=== PATIENT | female | born 1965 | race Caucasian/White ===

== ENCOUNTER 2021-10-16 10:24 | Day surgery (SDC) | payer MEDICAID ==
[2021-10-15 09:52] VITALS: BMI 26.8
[~2021-10-16 10:24] MED LIST: SODIUM CHLORIDE 0.9% 1,000 ML IV SCH
[2021-10-16] MEDS ORDERED: ePHEDrine 50 MG/ML 1 ML VIAL ONE (13:51)
[2021-10-16] MEDS ORDERED: fentaNYL (PF) 50 MCG/ML 2 ML AMP ONE (13:51)
[2021-10-16] MEDS ORDERED: LIDOCAINE 2% INJ 20 MG/ML (2 ML VIAL) ONE (13:51)
[2021-10-16] MEDS ORDERED: SUCCINYLCHOLINE CHLORIDE 200 MG/10 ML VIAL IV ONE (13:51)
[2021-10-16] MEDS ORDERED: PROPOFOL 10 MG/ML 20 ML VIAL IV ONE (13:51)
[2021-10-16] MEDS ORDERED: PHENYLEPHRINE-0.9% NACL SYG 1,000 MCG/10 ML SYRINGE ONE (13:51)
[2021-10-16] MEDS ORDERED: MIDAZOLAM 2 MG/2 ML VIAL ONE (13:51)
--- NOTE | 2021-10-16 14:11 | P.HPCAR ---
History of Present Illness This is Dr. Aguilar dictating an H/P on this patient The patient was interviewed and examined IMPRESSION / ASSESSMENT: Persistent atrial fibrillation, symptomatic Type 2 diabetes Normal TSH PLAN: Proceed with pulmonary vein isolation Continue anticoagulation HPI Patient complains of palpitations She has documented atrial fibrillation Denies any orthopnea PND Denies any cough expectoration No chest discomfort ROS: No fever chills or rigors, no cough, phlegm or expectoration, no nausea, vomiting or diarrhea, no hematuria, dysuria, no musculoskeletal complaints, no strokes or seizures, no skin lesions. EXAMINATION: Afebrile 98.2F pulse rate in the 50s, blood pressure 138/78 mmHg No orthopnea Normal heart sounds no murmurs no gallops Lungs no rhonchi no crackles No lower extremity edema REVIEW OF LABS, ECG & MEDICAL DATA 2-D echo and Doppler study from [facility] shows normal LV size with normal LV systolic function without any significant valvular abnormalities Medications at home include metoprolol and ELIQUIS Physical Exam Vitals: Vital Signs Temp Pulse Resp BP Pulse Ox 10/16/21 11:07 98.2 F 50 L 18 138/78 98 Intake and Output 10/15/21 10/16/21 10/16/21 22:59 06:59 14:59 Intake Total 20 Balance 20 Intake: IV 20 Other: Weight 75.8 kg Past Medical History Past Medical History: GERD/Reflux, Osteoarthritis (OA) Additional Past Medical History / Comment(s): See Dr Aguilar's H&P,borderline diabetes,hx stomach ulcer History of Any Multi-Drug Resistant Organisms: None Reported Past Surgical History: Hysterectomy, Joint Replacement, Orthopedic Surgery Additional Past Surgical History / Comment(s): lt foot surgery ,lt knee replacement Past Anesthesia/Blood Transfusion Reactions: No Reported Reaction Smoking Status: Never smoker - Past Family History Mother Family Medical History: No Reported History Physical Examination Vital Signs Temp Pulse Resp BP Pulse Ox 10/16/21 11:07 98.2 F 50 L 18 138/78 98 Intake and Output 10/15/21 10/16/21 10/16/21 22:59 06:59 14:59 Intake Total 20 Balance 20 Intake: IV 20 Other: Weight 75.8 kg Results Current Medications Generic Name Dose Route Start Last Admin Trade Name Freq PRN Reason Stop Dose Admin Sodium Chloride 1,000 mls @ 20 mls/hr 10/16/21 05:57 10/16/21 11:09 Saline 0.9% IV 11/15/21 05:58 20 mls .Q24H ELSA Administration Intake and Output 10/15/21 10/16/21 10/16/21 22:59 06:59 14:59 Intake Total 20 Balance 20 Intake: IV 20 Other: Weight 75.8 kg Patient Weight 10/17/21 06:59 Weight 75.8 kg
[2021-10-16] MEDS ORDERED: LIDOCAINE 1% INJ 10MG/ML (30 ML VIAL-PF) SQ ONE (14:28)
[2021-10-16] MEDS ORDERED: HEPARIN SOD,PORK IN 0.45% NACL 25,000 UNIT in 0.45% NACL 1 250ML.BAG IV ONE (14:36)
--- NOTE | 2021-10-16 16:06 | P.PRLE ---
RE: Reena Delgadillo Dear Dr.Alaouie Reena Delgadillo underwent successful pulmonary vein isolation for management of recurrent atrial fibrillation. She will continue ELIQUIS for a minimum of 3 months more. Her dose of metoprolol may be reduced after about 6 weeks or so She'll follow-up with you as previously scheduled Thank you for entrusting me with the care of the patient Warm regards Sincerely Von Aguilar
[2021-10-16] MEDS ORDERED: ACETAMINOPHEN TAB 325 MG TAB PO PRN (16:07)
--- NOTE | 2021-10-16 16:13 | P.EPPROC ---
- EP Procedure Note Electrophysiology Procedure Note: PROCEDURE A. fib ablation/PVI DIAGNOSIS Paroxysmal Atrial fibrillation, symptomatic, refractory to therapy RESULT No left atrial appendage mass seen on intracardiac echo Successful A. fib ablation/pulmonary vein isolation of all veins using cryo- ablation Complete entrance block in all 4 veins confirmed No evidence for phrenic nerve injury Esophageal deflection YES PROCEDURE DETAILS Patient was brought to the EP lab in a fasting state after obtaining written informed consent. Procedure performed under general anesthesia Esophagus was intubated. Esophageal temperature monitoring with circa catheter. Esophageal deflection with an endoscope to avoid hypothermia of the esophagus. After initial muscle relaxant use, muscle relaxants were not given thereafter in order to assess phrenic nerve during procedure. Patient prepped and draped as per protocol Cryo ablation-set up with standard preparation of the cryoablation tools done. Femoral Venous access obtained on the right and left groins and sheaths placed Diagnostic catheters for the high right atrium, phrenic nerve stimulation and pacing, His bundle, coronary sinus placed Intracardiac echo catheter placed. Long sheath placed in the right atrium Left and right transseptal catheterization performed under intracardiac echo guidance. Intravenous heparin with aCT above 300 Later, catheter positioning and balloon positioning in the left atrium and pulmonary veins, under intracardiac echo guidance Diagnostic EP study with coronary sinus pacing and recording Baseline measurements: ME interval 180 ms, QRS 114, QT 500 ms AH 73 and HV 28 ms Sinus node recovery times at 600, 504 100 ms were 638, 650 and 600 ms AV node Wenckebach block 320 ms Transseptal catheterization performed RA pressure 13/8/11 LA pressure 18/8/13 Transseptal catheterization performed with standard sheath. The cryoablation sheath was then placed with an over the wire exchange without any acute complications. The cryoablation balloon was placed in the office of each pulmonary vein and all 4 pulmonary veins were isolated. IV dye was injected to confirm occlusion. Goal: achieve complete occlusion of the pulmonary vein, achieve -30 degrees C at 30 seconds and achieve -40 degrees C at 60 seconds and a time to effect of less than 60 seconds. If not, the balloon was repositioned to obtain this result After completion of Cryoblation with durations from 180-240 seconds, entrance block was confirmed with the Attain circular catheter in a roving fashion around the antrum of the pulmonary veins Phrenic nerve pacing was performed from the SVC, right innominate vein area and diaphragm voltage was monitored. Diaphragmatic contractions were also monitored manually for strength of contraction. At the end of the procedure the Achieve catheter was once again used to check for entrance block Phrenic nerve stimulation was performed to confirm diaphragmatic stimulation the end of the procedure Cine fluoroscopy was performed at the very end of the procedure to confirm movement of both diaphragms with inspiration and expiration No phrenic nerve stimulation with pacing, within the right superior pulmonary vein No paresis of the phrenic nerve noted either At the end of the procedure the patient was extubated Venous sheaths were removed and hemostasis assured with a closure device PROCEDURES PERFORMED Diagnostic EP study CS pacing and recording Left and right transseptal catheterization Catheter the mapping of the tachycardia Intracardiac echocardiography Pulmonary vein isolation with transseptal and comprehensive EPS, [id number]
[2021-10-16] MEDS ORDERED: ACETAMINOPHEN IV (For NPO) 1,000 MG in EMPTY BAG 1 BAG IVPB ONE (17:30)
[2021-10-16] MEDS: APIXABAN 5 MG TAB PO SCH (20:22)
[2021-10-17 03:00] VITALS: RESP 18; TEMP 98.3
[2021-10-17] MEDS ORDERED: SODIUM CHLORIDE 0.9% 500 ML 250 ML IV ONE (07:46)
--- NOTE | 2021-10-17 07:55 | P.DS ---
Providers Attending physician: Von Aguilar Primary care physician: [facility] Course: Patient is doing well no chest discomfort dizziness or lightheadedness She does have a headache but her blood pressure is 96. His mercury Previously her blood pressure is normal On examination normal heart sounds no murmurs gallop or rub Mariajose lungs no rhonchi no crackles Afebrile heart rates in the 70s and 80s sinus mechanism Cranial nerve examination normal Motor examination normal Impression paroxysmal atrial fibrillation Status post PVI with complete isolation of all pulmonary veins Intracardiac echo revealed pericardial thickening and reaction especially inferior basal Minimal pericardial fluid at baseline Suggest Continue current medications Continue ELIQUIS Follow-up with Dr. Naik in 1 week Patient Condition at Discharge: Stable Plan - Discharge Summary Discharge Rx Participant: No New Discharge Prescriptions: No Action Metoprolol Succinate (ER) [Toprol Xl] 25 mg PO QAM Apixaban [Eliquis] 5 mg PO BID Metoprolol Succinate (ER) [Toprol Xl] 50 mg PO HS Acetaminophen Tab [Tylenol Tab] 500 mg PO Q6H PRN PRN Reason: Pain Discharge Medication List Acetaminophen Tab [Tylenol Tab] 500 mg PO Q6H PRN 10/15/21 [History] Apixaban [Eliquis] 5 mg PO BID 10/15/21 [History] Metoprolol Succinate (ER) [Toprol Xl] 25 mg PO QAM 10/15/21 [History] Metoprolol Succinate (ER) [Toprol Xl] 50 mg PO HS 10/15/21 [History] Follow up Appointment(s)/Referral(s): Von Aguilar MD [STAFF PHYSICIAN] - 6 Weeks (Follow-up with Dr. Aguilar/Margaret Potter in 6 weeks) Freddie Camilo DO [REFERRING] - 1 Week (Groin check in 1 week with primary associate software development engineer) Discharge Disposition: HOME SELF-CARE
[2021-10-17] MEDS ORDERED: METOPROLOL SUCCINATE (ER) 25 MG TAB.ER.24H PO SCH (09:00)
[2021-10-17 09:39] VITALS: BP 115/72; PULSE 77
[2021-10-17] MEDS: APIXABAN 5 MG TAB PO SCH (10:03)
== END 2021-10-17 11:50 | disposition home or self-care (01) ==
LOC: CATHEP 10:24 → 6NMEDSUR 16:20 → CATHEP 10-17 11:50
PROVIDERS: ATTEND Internal Medicine Clinical Cardiac Electrophysiology
DX: I48.19 Other persistent atrial fibrillation (principal); E11.8 Type 2 diabetes mellitus with unspecified complications; F41.9 Anxiety disorder, unspecified; E11.9 Type 2 diabetes mellitus without complications; I10 Essential (primary) hypertension; Z20.822 Contact with and (suspected) exposure to COVID-19; Z82.49 Family history of ischemic heart disease and other diseases of the circulatory system; Z79.01 Long term (current) use of anticoagulants; Z79.899 Other long term (current) drug therapy
CPT/HCPCS: 93656; 87635; C1894 ×2; C1769 ×4; C1760; C1893; C1733; C1766; J2001; J0131; J1644